=== PATIENT | female | born 1980 | race Caucasian/White ===

== ENCOUNTER 2018-03-30 14:18 | Emergency (ER) | payer BC ==
--- NOTE | 2018-03-30 15:18 | EDPHY ---
H & P Stated Complaint: Right shoulder/trapezius pain radiating down arm since swimming on tuesday Time Seen by Provider: 03/30/18 14:45 HPI/ROS: CHIEF COMPLAINT: Right-sided neck pain HISTORY OF PRESENT ILLNESS: 37-year-old female presents with right-sided neck pain. Onset neck pain 1 week ago after swimming. The pain increases with neck movement, especially to the left. No pain with shoulder range of motion. Occasionally has tingling at the base of her neck on the right side. No radicular pain and no numbness or tingling of the arm. Using ibuprofen with some relief. Seen in urgent care twice and had an x-ray of the cervical spine and shoulder that were unremarkable for acute changes. History of prior herniated disc at C5/6 and prior rotator cuff injury diagnosed by MRI. REVIEW OF SYSTEMS: complete 10 point ROS negative except at noted in the HPI - Personal History LMP (Females 10-55): 8-14 Days Ago Current Tetanus Diphtheria and Acellular Pertussis (TDAP): Yes - Medical/Surgical History Hx Asthma: No Hx Chronic Respiratory Disease: No Hx Diabetes: No Hx Cardiac Disease: No Hx Renal Disease: No Hx Cirrhosis: No Hx Alcoholism: No Hx HIV/AIDS: No Hx Splenectomy or Spleen Trauma: No Other PMH: - Social History Smoking Status: Never smoked - Physical Exam Exam: General Appearance: Alert, pleasant Eyes: Pupils equal and round, no conjunctival pallor or injection ENT, Mouth: Mucous membranes moist Neck: Normal inspection, mild tenderness lower right paraspinous musculature Respiratory: Lungs are clear to auscultation Cardiovascular: Regular rate and rhythm Gastrointestinal: Abdomen is soft and nontender Neurological: A&O, motor 5/5 of the upper extremities, sensory intact to light touch Skin: Warm and dry, no rash Extremities: Right shoulder-range of motion without pain, no tenderness in the suprascapular area Psychiatric: Mood and affect normal Constitutional: Initial Vital Signs Temperature (C) 36.4 C 03/30/18 14:26 Heart Rate 74 03/30/18 14:26 Respiratory Rate 16 03/30/18 14:26 Blood Pressure 103/78 03/30/18 14:26 O2 Sat (%) 100 03/30/18 14:26 O2 Delivery Mode Room Air Allergies/Adverse Reactions: nitrofurantoin [From Macrobid] Allergy (Verified 03/30/18 14:24) Home Medications: Medication Instructions Recorded Ibuprofen 03/30/18 [place] 5/325 (*) 03/30/18 methylPREDNISolone [Medrol Dose 1 each PO AD #1 ea 03/30/18 Eduardo] Medical Decision Making ED Course/Re-evaluation: This patient presents with a cervical strain. Neurologic exam is normal and there is no indication for emergent MRI today. Will switch medications to Medrol Dosepak and lidocaine patch. Already has an appointment for follow up with Ortho. Differential Diagnosis: Includes though is not limited to herniated disc, shingles, shoulder strain, rotator cuff injury Departure - Departure Disposition: Home, Routine, Self-Care Clinical Impression: Cervical strain, acute Qualifiers: Encounter type: initial encounter Qualified Code(s): S16.1XXA - Strain of muscle, fascia and tendon at neck level, initial encounter Condition: Good Instructions: Cervical Strain (ED) Additional Instructions: Keep your appointment with the orthopedic surgeon. Return for worsening symptoms or any concerns. Do not take ibuprofen, Naprosyn or other anti-inflammatory medication while you are on the Medrol Dosepak. You may take Tylenol 650 mg every 4 hr as needed for pain. Referrals: Tawana Foy MD [Medical Doctor] - As per Instructions Prescriptions: methylPREDNISolone [Medrol Dose Eduardo] 1 each PO AD #1 ea
[2018-03-30 15:26] VITALS: BP 118/74
== END 2018-03-30 15:32 | disposition home or self-care (01) ==
DX: S16.1XXA Strain of muscle, fascia and tendon at neck level, initial encounter (principal); X58.XXXA Exposure to other specified factors, initial encounter